=== PATIENT | female | born 1995 | race Caucasian/White ===

== ENCOUNTER 2018-04-02 11:58 | Emergency (ER) | payer BC, SELFPAY ==
[2018-04-02 12:00] VITALS: BP 135/80; PULSE 60; RESP 14; TEMP 36.6; O2SAT 100; BMI 23.6
[2018-04-02] MEDS: Ketorolac 30 MG/ML Syringe IM (12:29)
--- NOTE | 2018-04-02 13:00 | RAD_ITS ---
STUDY: X-RAY - UNILATERAL RIBS ( LEFT ) WITH CHEST REASON FOR EXAM: Female, 22 years old. PAIN ON LEFT BACK RIBS, NO KNOWN INJURY TECHNIQUE - RIBS: 3 view(s) of the ribs. TECHNIQUE - CHEST: Single PA view of the chest. COMPARISON: None. FINDINGS - RIBS: Normal visualized ribs without a demonstrated fracture. FINDINGS - CHEST: The lungs are clear and expanded. There is no demonstrated pleural abnormality. Normal size heart. Normal mediastinum and emery. Normal visualized pulmonary arteries. Normal visualized aortic arch and descending thoracic aorta. Normal visualized thoracic spine. Normal visualized ribs, clavicles, and shoulders. There is no demonstrated abnormality of the visualized soft tissue structures of the upper abdomen. RAD/Ribs Uni Min 3V w/PA Chest IMPRESSION: RIBS: Normal x-ray examination of the ribs. CHEST: Normal x-ray examination of the chest. Electronically Signed: Leyla Wiseman MD at 13:18 EDT , Service support ,
--- NOTE | 2018-04-02 14:32 | NURSING ---
NO OLD EKGS
[2018-04-02] MEDS: Morphine 4 MG/ML Syringe IV (14:35)
[2018-04-02] MEDS: 0.9% Normal Saline 1,000 ML 1000 ML IV (14:35)
[2018-04-02] MEDS: Ondansetron 4 MG/2 ML Vial IV (14:35)
[2018-04-02 15:00] LABS: Absolute Neutrophil Count 3.8 X10^3/uL (2.0-7.7); Basophil# 0.06 X10^3/uL; Basophil% 0.9 % (0-1); Eosinophil# 0.43 X10^3/uL; Eosinophils% 6.3 % (0-5); Hematocrit 36.6 % (37-47); Hemoglobin 12.2 g/dl (12.0-15.0); Lymphocyte % 29.3 % (19-41); Mean Corp Hgb Conc 33.3 g/gl (32-36); Mean Corpuscular Hgb 29.6 pg (27.0-32.0); Mean Corpuscular Volume 88.8 fL (81-99); Mean Platelet Vol. 9.3 fl (6.2-12.0); Monocyte% 7.3 % (0-10); Neutrophil # 3.83 X10^3/uL (2.7-7.7); Neutrophil % 56.1 % (47-70); POSITIVE COUNT NO; POSITIVE DIFFERENTIAL NO; POSITIVE MORPHOLOGY NO; Platelet Count 218 K/mm3 (150-450); RBC Distribution Width CV 13.3 % (11.6-14.6); RBC Distribution Width SD 42.3 fl (35.1-43.9); Red Blood Count 4.12 M/mm3 (4.2-5.4); White Blood Count 6.8 K/mm3 (4.4-11.0)
[2018-04-02 15:38] LABS: ALB/GLOB Ratio 0.9 RATIO (0.9-2.4); AST(SGOT) 18 U/L (15-37); Alanine Aminotransfer ALT/SGPT 18 U/L (13-56); Albumin, Serum 3.1 g/dL (3.2-5.0); Alkaline Phosphatase 48 U/L (45-117); Anion Gap 7 (5-15); BUN 7 mg/dL (7-18); BUN/Creat Ratio 10.6 RATIO (10-20); Calcium,Total 7.6 mg/dL (8.5-10.1); Chloride 112 mmol/L (98-107); Creatinine, Serum 0.66 mg/dL (0.55-1.02); EST Glomerular Filtration Rate 119 mL/min (>60); Est Glom Filt Rate - Afr Amer 144 mL/min (>60); Estimated Creatinine Clearance 116.43 ml/min; Globulin 3.3 g/dL (2.2-4.2); Glucose 79 mg/dL (74-106); Lipase 90 U/L (73-393); Potassium 3.7 mmol/L (3.5-5.1); Protein, Total 6.4 g/dL (6.4-8.2); Sodium Level 142 mmol/L (136-145)
[2018-04-02 15:45] LABS: D-Dimer Quantitative (DVT/PE) < 0.27 FEU/ug/m (0.27-0.49)
[2018-04-02 15:48] LABS: Pregnancy, Serum, hCG Quali. NEGATIVE Negative (0-9 Nonpreg)
--- NOTE | 2018-04-02 16:10 | ED.DCSUM_ITS ---
- ER Visit Summary Date of Service: 04/02/18 Chief Complaint: Back pain History of Present Illness: The patient is a 22 F with left thoracic back pain. She was seen at urgent care and had a normal urine test. She was referred to the emergency department for x-rays. The symptoms started gradually 5 days ago. It feels like something is squeezing her. The pain been getting increasingly more severe. Worse with breathing and moving. She has tried over- the-counter remedies like ibuprofen and icy hot, but nothing is helping. Denies any history of heart disease, DVT, PE, or aortic disease. Denies any recent fevers or illness. Denies cough or sputum. She does use oral contraceptives and is a smoker. Denies leg swelling. Denies recent hospitalization, injury, or surgery. Denies kidney stones, hematuria, dysuria, or fever. Physical Examination: Afebrile and vital signs unremarkable. Patient is tearful and reluctant to move. Heart is regular rate and rhythm. Lungs are clear. Left mid/inferior and posterior ribs are tender to palpation diffusely. No CVA tenderness. Overlying skin appears normal. No rash. Test Results: Chest x-ray and x-ray ribs were unremarkable. Emergency Department Course and Treatment: Patient symptoms seem like myofascial pain. I did order x-rays of her chest and left ribs to check for effusion, fracture, or any other abnormalities that might be causing point tenderness in this area. Patient treated with Toradol while awaiting results. Her x-rays were unremarkable, and I reevaluated the patient. On reevaluation, the patient was tearful. The pain was severe. She was unable to move because of the pain. Given the severity of her symptoms, I did check a further workup. EKG showed sinus rhythm. Labs unremarkable. Troponin and d- dimer normal. Patient treated with morphine and Zofran. On reevaluation, the patient is much more comfortable. This is likely myofascial pain. I have very little suspicion for cardiac disease, PE, or aortic disease. She may also be developing shingles. She will be prescribed a short course of Morton and Flexeril. Continue ibuprofen and icy hot. Follow-up with primary care. Treatment Plan: As above Disposition: Discharged Impression: 1. Thoracic back pain This note was generated with [employer] software. It may contain incorrect words, spelling, and punctuation that were not noted in review of the chart prior to signing ED Disposition - Plan for ED Patient: Disposition: Home or Assisted Living Chief Complaint: Back Instructions: Relieving Back Pain Prescriptions: Hydrocodone Bitart/Apap 5-325 [Morton 5MG-325MG] 1 tab PO Q6H PRN PRN 3 Days #10 tab PRN Reason: Pain Cyclobenzaprine [Flexeril] 10 mg PO TID PRN #20 tab PRN Reason: Muscle Spasm Referrals: Melissa Kimball MD [Primary Care Provider] -
--- NOTE | 2018-04-02 16:10 | ED.DEP ---
ED Disposition - Plan for ED Patient: Chief Complaint: Back Instructions: Relieving Back Pain Prescriptions: Hydrocodone Bitart/Apap 5-325 [[place] 5MG-325MG] 1 tab PO Q6H PRN PRN 3 Days #10 tab PRN Reason: Pain Cyclobenzaprine [Flexeril] 10 mg PO TID PRN #20 tab PRN Reason: Muscle Spasm Referrals: Melissa Kimball MD [Primary Care Provider] -
--- NOTE | 2018-04-02 16:13 | DCINST.ED_ITS ---
ED Disposition - Plan for ED Patient: Chief Complaint: Back Instructions: Relieving Back Pain Prescriptions: Hydrocodone Bitart/Apap 5-325 [[place] 5MG-325MG] 1 tab PO Q6H PRN PRN 3 Days #10 tab PRN Reason: Pain Cyclobenzaprine [Flexeril] 10 mg PO TID PRN #20 tab PRN Reason: Muscle Spasm Referrals: Melissa Kimball MD [Primary Care Provider] -
[2018-04-02 16:30] VITALS: BP 125/74; PULSE 85; RESP 17; O2SAT 99
== END 2018-04-02 16:30 | disposition home or self-care (01) ==
PROVIDERS: Emergency Provider Emergency Medicine; Family Provider Internal Medicine; PCP Internal Medicine
DX: M54.6 Pain in thoracic spine (principal); F17.200 Nicotine dependence, unspecified, uncomplicated
CPT/HCPCS: 71101; 80053; 83690; 84484; 84703; 85025; 85379; 93005; 96361; 96374; 96375; 99283; J7030; J2405

== ENCOUNTER 2019-02-07 14:37 | Emergency (ER) | payer BC, SELFPAY ==
[2019-02-07 14:39] VITALS: BP 114/79; PULSE 63; RESP 15; TEMP 36.2; O2SAT 98; BMI 23.1
--- NOTE | 2019-02-07 15:07 | ED.VISSUMM ---
- ER Visit Summary Date of Service: 02/07/19 Chief Complaint: Dental pain History of Present Illness: The patient is a 23 F no significant past medical history. Patient states she has had dental and gum and jaw pain for the last 5 days or more. Basically constant. No facial or swelling. No fever. She is currently undergoing dental procedures at [facility]. She denies any trauma. Physical Examination: Well-appearing young female. Vital signs are stable afebrile. HEENT exam she is dental decay diffusely. She is areas of gingival swelling consistent with gingivitis. She also has recession of her gums. And breakdown some of the enamel and early caries. There is no abscess. There is no trismus. There is no facial swelling. Posterior pharynx is unremarkable. No trouble swallowing or breathing. Under her tongue the tissues are soft and not infected. Neck nontender. No lymphadenopathy. Lungs clear to auscultation bilaterally. Heart regular rate and rhythm no murmur. Abdomen soft and nontender. Otherwise exam unremarkable. Test Results: None Emergency Department Course and Treatment: Discussed with patient pain control with anti-inflammatories and Tylenol. Treatment Plan: Patient will be started on Pen-Vee K 4 times daily for 10 days. Follow-up with her dentist. Tylenol Motrin for pain. Mouth rinses. Disposition: Discharge Impression: Acute dental decay widespread medication with diffuse gingivitis This note was generated with [employer] dictation software. It may contain incorrect words, spelling, and punctuation that were not noted in review of the chart prior to signing ED Disposition - Plan for ED Patient: Referrals: Melissa Kimball MD [Primary Care Provider] -
--- NOTE | 2019-02-07 15:09 | ED.DEP ---
ED Disposition - Plan for ED Patient: Disposition: Home or Assisted Living Instructions: Understanding Gingivitis Prescriptions: Penicillin Vk [Pen-Vee K , V-Cillin K] 500 mg PO 4X/DAY 10 Days tab Referrals: Melissa Kimball MD [Primary Care Provider] - As Needed Additional Instructions: Pen-Vee K 4 times a day until gone. Follow-up with your dentist. Tylenol and and Motrin for pain.
== END 2019-02-07 15:22 | disposition home or self-care (01) ==
PROVIDERS: Emergency Provider Emergency Medicine; Family Provider Internal Medicine; PCP Internal Medicine
DX: K02.9 Dental caries, unspecified (principal); K05.10 Chronic gingivitis, plaque induced; Z72.0 Tobacco use
CPT/HCPCS: 99282